=== PATIENT | male | born 1950 | race Caucasian/White ===

== ENCOUNTER 2017-11-12 12:36 | Inpatient (IN) ==
[2017-11-12] MEDS ORDERED: methylPREDNISolone SOD SUC 125 MG/2 ML VIAL IV STA (13:10)
[2017-11-12] MEDS: ALBUTEROL 2.5 MG/3 ML NEB RESP TX SCH ×3 (13:35→14:15)
[2017-11-12] MEDS ORDERED: methylPREDNISolone SOD SUC 125 MG/2 ML VIAL ONE (13:39)
[2017-11-12 14:08] LABS: Basophils # 0.1 10*3/uL (0.0-0.2); Basophils % 0.7 % (0.0-0.8); Eosinophils # 0.6 10*3/uL (0.0-0.87); Eosinophils % 3.6 % (0.00-10.9); Hematocrit 40.7 VOL% (42.0-52.0); Hemoglobin 13.3 GM/DL (14.0-18.0); Immature Granulocytes % 0.8 %; Immature Granulocytes Absolute 0.13 #; Lymphocytes # 1.9 10*3/uL (1.4-4.0); Lymphocytes % 12.4 % (21.2-54.2); Mean Corpuscular HGB Conc 32.7 GM/DL (32-36); Mean Corpuscular Hemoglobin 31 PG (27-34); Mean Corpuscular Volume 94.7 FL (87-102); Monocytes # 1.4 10*3/uL (0.11-0.8); Monocytes % 8.7 % (1.7-12.7); Neutrophils # 11.5 10*3/uL (1.4-7.4); Neutrophils % 73.8 % (38.7-73.9); Platelet Count 357 T/CUMM (130-400); Red Cell Distribution Width 14.3 % (9.3-17.3); White Blood Count 15.6 T/CUMM (4-12)
[2017-11-12 14:25] LABS: Alanine Aminotransferase 22 U/L (16-61); Albumin 2.7 G/DL (3.4-5.0); Alkaline Phosphatase 111 U/L (45-117); Aspartate Amino Transferase 17 U/L (0-37); Blood Urea Nitrogen 17 MG/DL (7-18); Calcium 9.3 MG/DL (8.5-10.1); Glucose 115 MG/DL (74-106); Potassium 3.8 MMOL/L (3.5-5.1); Sodium 136 MMOL/L (136-145); Total Protein 7.1 G/DL (6.4-8.3); Troponin I Only < 0.015 NG/ML (0.00-0.045)
[2017-11-12] MEDS ORDERED: ZALEPLON 5 MG CAPSULE PO PRN (15:52)
[2017-11-12] MEDS ORDERED: ONDANSETRON 4 MG/2 ML VIAL IV PRN (15:52)
[2017-11-12] MEDS ORDERED: LEVALBUTEROL 1.25 MG/3 ML NEB RESP TX PRN (15:52)
[2017-11-12] MEDS ORDERED: LEVALBUTEROL 0.63 MG/3 ML NEB RESP TX PRN (15:52)
[2017-11-12] MEDS: CHOLECALCIFEROL 1,000 UNIT TABLET PO SCH (20:28)
[2017-11-12] MEDS: PRAVASTATIN 40 MG TABLET PO SCH (20:28)
[2017-11-12] MEDS: ASCORBIC ACID 500 MG TABLET PO SCH (20:28)
[2017-11-12] MEDS: LATANOPROST 0.005% OPH SOLN 2.5 ML BOTTLE BOTH EYES SCH (20:30)
[2017-11-13 06:15] LABS: Basophils % 0.1 % (0.0-0.8); Hematocrit 40.4 VOL% (42.0-52.0); Hemoglobin 13.1 GM/DL (14.0-18.0); Immature Granulocytes % 1.2 %; Immature Granulocytes Absolute 0.14 #; Lymphocytes # 1.1 10*3/uL (1.4-4.0); Lymphocytes % 9.6 % (21.2-54.2); Mean Corpuscular HGB Conc 32.4 GM/DL (32-36); Mean Corpuscular Hemoglobin 31 PG (27-34); Mean Corpuscular Volume 94.2 FL (87-102); Mean Platelet Volume 9.3 FL (9.6-12.0); Monocytes # 0.3 10*3/uL (0.11-0.8); Monocytes % 2.6 % (1.7-12.7); Neutrophils # 10.3 10*3/uL (1.4-7.4); Neutrophils % 86.5 % (38.7-73.9); Platelet Count 388 T/CUMM (130-400); Red Blood Count 4.29 MC/CUMM (3.8-5.5); Red Cell Distribution Width 14.2 % (9.3-17.3); White Blood Count 11.9 T/CUMM (4-12)
[2017-11-13 08:07] LABS: Albumin 2.7 G/DL (3.4-5.0); Bilirubin,Total 0.7 MG/DL (0.2-1.0); Calcium 9.4 MG/DL (8.5-10.1); Osmolality,Calculated 277.5 MOS/KG (273-304); Potassium 4.6 MMOL/L (3.5-5.1); Total Protein 7.2 G/DL (6.4-8.3)
[2017-11-13] MEDS: CHOLECALCIFEROL 1,000 UNIT TABLET PO SCH ×2 (08:29→21:17)
[2017-11-13] MEDS: DILTIAZEM CD 180 MG CAPSULE PO SCH (08:30)
[2017-11-13] MEDS: ASCORBIC ACID 500 MG TABLET PO SCH ×2 (08:30→21:17)
[2017-11-13] MEDS: predniSONE 20 MG TABLET PO SCH (08:30)
[2017-11-13] MEDS: PANTOPRAZOLE 40 MG TABLET PO SCH (08:30)
[2017-11-13] MEDS: DIGOXIN 0.25 MG TABLET PO SCH (17:13)
[2017-11-13] MEDS: PRAVASTATIN 40 MG TABLET PO SCH (21:17)
[2017-11-13] MEDS: LATANOPROST 0.005% OPH SOLN 2.5 ML BOTTLE BOTH EYES SCH (21:21)
[2017-11-14] MEDS: DILTIAZEM CD 180 MG CAPSULE PO SCH (09:29)
[2017-11-14] MEDS: predniSONE 20 MG TABLET PO SCH (09:30)
[2017-11-14] MEDS: PANTOPRAZOLE 40 MG TABLET PO SCH (09:31)
[2017-11-14] MEDS: CHOLECALCIFEROL 1,000 UNIT TABLET PO SCH ×2 (09:32→20:48)
[2017-11-14] MEDS: ASCORBIC ACID 500 MG TABLET PO SCH ×2 (09:32→20:51)
[2017-11-14] MEDS: BUDESONIDE/FORMOTEROL 160-4.5 INHALER 6 GM INH SCH ×2 (09:59→20:49)
[2017-11-14] MEDS: LEVOFLOXACIN INJ 750 MG in PREMIX 1 EACH IV SCH (10:05)
[2017-11-14] MEDS: DIGOXIN 0.25 MG TABLET PO SCH (14:17)
[2017-11-14] MEDS: PRAVASTATIN 40 MG TABLET PO SCH (20:48)
[2017-11-14] MEDS: LATANOPROST 0.005% OPH SOLN 2.5 ML BOTTLE BOTH EYES SCH (20:49)
[2017-11-14 22:20] LABS: Apearance,Urine CLEAR (Clear); Bilirubin,Urine Negative (Negative); Blood, Urine Negative (Negative); Glucose,Urine (UA) Negative (Negative); Ketones,Urine Negative (Negative); Mucus,Urine Occasional /LPF (Occasional); Nitrite,Urine Negative (Negative); Protein,Urine Negative; Urine Color Straw (Yellow); Urine Specific Gravity 1.009 (1.001-1.035); Urine Urobilinogen < 2.0 EU/DL (0.2-1.0); WBC,Urine <1 /HPF (0-6)
[2017-11-15] MEDS ORDERED: DIAZEPAM 5 MG TABLET PO ONE (09:00)
[2017-11-15] MEDS: CHOLECALCIFEROL 1,000 UNIT TABLET PO SCH ×2 (11:40→20:42)
[2017-11-15] MEDS: predniSONE 20 MG TABLET PO SCH (11:40)
[2017-11-15] MEDS: DILTIAZEM CD 180 MG CAPSULE PO SCH (11:40)
[2017-11-15] MEDS: ASCORBIC ACID 500 MG TABLET PO SCH ×2 (11:41→20:42)
[2017-11-15] MEDS: PANTOPRAZOLE 40 MG TABLET PO SCH (11:41)
[2017-11-15] MEDS: LEVOFLOXACIN INJ 750 MG in PREMIX 1 EACH IV SCH (11:42)
[2017-11-15] MEDS: BUDESONIDE/FORMOTEROL 160-4.5 INHALER 6 GM INH SCH ×2 (11:43→20:44)
[2017-11-15] MEDS: DIGOXIN 0.25 MG TABLET PO SCH (13:14)
[2017-11-15] MEDS: PRAVASTATIN 40 MG TABLET PO SCH (20:42)
[2017-11-15] MEDS: LATANOPROST 0.005% OPH SOLN 2.5 ML BOTTLE BOTH EYES SCH (20:42)
[2017-11-16] MEDS: predniSONE 20 MG TABLET PO SCH (08:48)
[2017-11-16] MEDS: DILTIAZEM CD 180 MG CAPSULE PO SCH (08:48)
[2017-11-16] MEDS: CHOLECALCIFEROL 1,000 UNIT TABLET PO SCH (08:48)
[2017-11-16] MEDS: PANTOPRAZOLE 40 MG TABLET PO SCH (08:49)
[2017-11-16] MEDS: ASCORBIC ACID 500 MG TABLET PO SCH (08:49)
[2017-11-16] MEDS: LEVOFLOXACIN INJ 750 MG in PREMIX 1 EACH IV SCH (08:49)
[2017-11-16] MEDS: BUDESONIDE/FORMOTEROL 160-4.5 INHALER 6 GM INH SCH (08:51)
[2017-11-16 09:15] VITALS: BP 138/82
== END 2017-11-16 12:47 | disposition home health service (06) | DRG 181 ==
LOC: N.ED 12:36 → N.EDINP 15:04 → N.4E 18:37

== ENCOUNTER 2017-12-10 15:40 | Inpatient (IN) ==
[2017-12-10] MEDS ORDERED: FUROSEMIDE 100 MG/10 ML VIAL IV STA (15:58)
[2017-12-10] MEDS ORDERED: ONDANSETRON 4 MG/2 ML VIAL IV STA (15:58)
[2017-12-10] MEDS ORDERED: methylPREDNISolone SOD SUC 125 MG/2 ML VIAL IV STA (15:58)
[2017-12-10] MEDS ORDERED: ALBUTEROL 2.5 MG/3 ML NEB RESP TX SCH (16:00)
[2017-12-10 17:05] LABS: Basophils % 0.3 % (0.0-0.8); Eosinophils # 0.1 10*3/uL (0.0-0.87); Eosinophils % 0.7 % (0.00-10.9); Hematocrit 36.1 VOL% (42.0-52.0); Hemoglobin 11.6 GM/DL (14.0-18.0); Immature Granulocytes Absolute 0.43 #; Lymphocytes # 1.1 10*3/uL (1.4-4.0); Lymphocytes % 7.8 % (21.2-54.2); Mean Corpuscular HGB Conc 32.1 GM/DL (32-36); Mean Corpuscular Hemoglobin 31 PG (27-34); Mean Platelet Volume 8.7 FL (9.6-12.0); Monocytes # 0.7 10*3/uL (0.11-0.8); Monocytes % 5.2 % (1.7-12.7); Neutrophils # 11.9 10*3/uL (1.4-7.4); Platelet Count 407 T/CUMM (130-400); Red Cell Distribution Width 14.8 % (9.3-17.3); White Blood Count 14.3 T/CUMM (4-12)
[2017-12-10 17:16] LABS: PT Patient Result 10.9 SECS; Partial Thromboplastin Time 29.4 SECS (0-40)
[2017-12-10] MEDS ORDERED: methylPREDNISolone SOD SUC 125 MG/2 ML VIAL ONE (17:16)
[2017-12-10] MEDS ORDERED: FUROSEMIDE 40 MG/4 ML VIAL ONE (17:16)
[2017-12-10] MEDS ORDERED: ONDANSETRON 4 MG/2 ML VIAL ONE (17:16)
[2017-12-10 17:27] LABS: Alanine Aminotransferase 54 U/L (16-61); Albumin 2.3 G/DL (3.4-5.0); Alkaline Phosphatase 85 U/L (45-117); Aspartate Amino Transferase 20 U/L (0-37); Bilirubin,Total < 0.39 MG/DL (0.2-1.0); Blood Urea Nitrogen 25 MG/DL (7-18); Calcium 8.9 MG/DL (8.5-10.1); Glucose 108 MG/DL (74-106); Osmolality,Calculated 281.5 MOS/KG (273-304); Potassium 5.1 MMOL/L (3.5-5.1); Sodium 139 MMOL/L (136-145); Total Protein 6.2 G/DL (6.4-8.3)
[2017-12-10 17:38] LABS: Apearance,Urine CLEAR (Clear); Bilirubin,Urine Negative (Negative); Blood, Urine Negative (Negative); Glucose,Urine (UA) Negative (Negative); Ketones,Urine Negative (Negative); Mucus,Urine Occasional /LPF (Occasional); Nitrite,Urine Negative (Negative); Protein,Urine Negative; RBC,Urine 1 /HPF (0-4); Urine Color Yellow (Yellow); Urine Specific Gravity 1.019 (1.001-1.035); WBC,Urine <1 /HPF (0-6)
[2017-12-10] MEDS ORDERED: LEVOFLOXACIN INJ 750 MG in PREMIX 1 EACH IV STA (18:18)
[2017-12-10] MEDS ORDERED: LEVOFLOXACIN INJ 150 ML IV ONE (18:46)
[2017-12-10] MEDS ORDERED: ACETAMINOPHEN 325 MG TABLET PO PRN (18:51)
[2017-12-10] MEDS ORDERED: ONDANSETRON 4 MG/2 ML VIAL IV PRN (18:51)
[2017-12-10] MEDS: DABIGATRAN 150 MG CAPSULE PO SCH (21:45)
[2017-12-10] MEDS: ASCORBIC ACID 500 MG TABLET PO SCH (21:45)
[2017-12-10] MEDS: CHOLECALCIFEROL 1,000 UNIT TABLET PO SCH (21:46)
[2017-12-10] MEDS: PRAVASTATIN 40 MG TABLET PO SCH (21:46)
[2017-12-10] MEDS: BUDESONIDE/FORMOTEROL 160-4.5 INHALER 6 GM INH SCH (21:48)
[2017-12-10] MEDS: LATANOPROST 0.005% OPH SOLN 2.5 ML BOTTLE BOTH EYES SCH (21:48)
[2017-12-11] MEDS: LEVALBUTEROL 1.25 MG/3 ML NEB RESP TX SCH ×4 (01:27→19:31)
[2017-12-11] MEDS ORDERED: methylPREDNISolone SOD SUC 40 MG/1 ML VIAL IV SCH (03:00)
[2017-12-11 06:35] LABS: Basophils % 0.1 % (0.0-0.8); Hematocrit 34.7 VOL% (42.0-52.0); Hemoglobin 11.3 GM/DL (14.0-18.0); Immature Granulocytes % 2.3 %; Immature Granulocytes Absolute 0.28 #; Lymphocytes # 0.8 10*3/uL (1.4-4.0); Lymphocytes % 6.1 % (21.2-54.2); Mean Corpuscular HGB Conc 32.6 GM/DL (32-36); Mean Corpuscular Hemoglobin 31 PG (27-34); Mean Corpuscular Volume 93.5 FL (87-102); Mean Platelet Volume 8.7 FL (9.6-12.0); Monocytes # 0.1 10*3/uL (0.11-0.8); Monocytes % 1.1 % (1.7-12.7); Neutrophils # 11.1 10*3/uL (1.4-7.4); Neutrophils % 90.4 % (38.7-73.9); Platelet Count 401 T/CUMM (130-400); Red Blood Count 3.71 MC/CUMM (3.8-5.5); Red Cell Distribution Width 14.6 % (9.3-17.3); White Blood Count 12.3 T/CUMM (4-12)
[2017-12-11 07:03] LABS: Alanine Aminotransferase 56 U/L (16-61); Albumin 2.5 G/DL (3.4-5.0); Alkaline Phosphatase 86 U/L (45-117); Aspartate Amino Transferase 17 U/L (0-37); Bilirubin,Total < 0.39 MG/DL (0.2-1.0); Blood Urea Nitrogen 22 MG/DL (7-18); Calcium 8.9 MG/DL (8.5-10.1); Glucose 134 MG/DL (74-106); Osmolality,Calculated 277.8 MOS/KG (273-304); Potassium 4.8 MMOL/L (3.5-5.1); Sodium 137 MMOL/L (136-145); Total Protein 6.3 G/DL (6.4-8.3)
[2017-12-11] MEDS: DILTIAZEM CD 240 MG CAPSULE PO SCH ×3 (09:07→21:13)
[2017-12-11] MEDS: ASCORBIC ACID 500 MG TABLET PO SCH ×2 (09:07→20:33)
[2017-12-11] MEDS: DABIGATRAN 150 MG CAPSULE PO SCH ×2 (09:07→20:34)
[2017-12-11] MEDS: PANTOPRAZOLE 40 MG TABLET PO SCH (09:08)
[2017-12-11] MEDS: BUDESONIDE/FORMOTEROL 160-4.5 INHALER 6 GM INH SCH ×2 (09:08→20:35)
[2017-12-11] MEDS: CHOLECALCIFEROL 1,000 UNIT TABLET PO SCH ×2 (09:08→20:34)
[2017-12-11] MEDS: DIGOXIN 0.25 MG TABLET PO SCH (09:08)
[2017-12-11] MEDS: ASPIRIN CHEW 81 MG TABLET PO SCH (09:08)
[2017-12-11] MEDS: methylPREDNISolone SOD SUC 40 MG/1 ML VIAL IV SCH ×2 (09:09→20:35)
[2017-12-11] MEDS: PRAVASTATIN 40 MG TABLET PO SCH (20:33)
[2017-12-11] MEDS: LATANOPROST 0.005% OPH SOLN 2.5 ML BOTTLE BOTH EYES SCH (20:33)
[2017-12-11] MEDS: LEVOFLOXACIN INJ 750 MG in PREMIX 1 EACH IV SCH (20:40)
[2017-12-12] MEDS: LEVALBUTEROL 1.25 MG/3 ML NEB RESP TX SCH ×4 (00:22→19:15)
[2017-12-12] MEDS: ASPIRIN CHEW 81 MG TABLET PO SCH (09:06)
[2017-12-12] MEDS: DILTIAZEM CD 240 MG CAPSULE PO SCH ×2 (09:06→20:47)
[2017-12-12] MEDS: PANTOPRAZOLE 40 MG TABLET PO SCH (09:07)
[2017-12-12] MEDS: CHOLECALCIFEROL 1,000 UNIT TABLET PO SCH ×2 (09:07→20:48)
[2017-12-12] MEDS: BUDESONIDE/FORMOTEROL 160-4.5 INHALER 6 GM INH SCH ×2 (09:07→20:53)
[2017-12-12] MEDS: DIGOXIN 0.25 MG TABLET PO SCH (09:07)
[2017-12-12] MEDS: DABIGATRAN 150 MG CAPSULE PO SCH ×2 (09:07→20:47)
[2017-12-12] MEDS: ASCORBIC ACID 500 MG TABLET PO SCH ×2 (09:08→20:47)
[2017-12-12] MEDS: methylPREDNISolone SOD SUC 40 MG/1 ML VIAL IV SCH ×2 (09:08→20:48)
[2017-12-12] MEDS: MAGNESIUM HYDROXIDE SUSP 30 ML UDCUP PO PRN ×2 (14:28→20:48)
[2017-12-12] MEDS: LEVOFLOXACIN INJ 750 MG in PREMIX 1 EACH IV SCH (20:46)
[2017-12-12] MEDS: PRAVASTATIN 40 MG TABLET PO SCH (20:48)
[2017-12-12] MEDS: LATANOPROST 0.005% OPH SOLN 2.5 ML BOTTLE BOTH EYES SCH (20:53)
[2017-12-13] MEDS: LEVALBUTEROL 1.25 MG/3 ML NEB RESP TX SCH ×4 (01:28→19:41)
[2017-12-13 06:50] LABS: Basophils % 0.1 % (0.0-0.8); Hematocrit 38.1 VOL% (42.0-52.0); Hemoglobin 11.8 GM/DL (14.0-18.0); Immature Granulocytes % 1.7 %; Immature Granulocytes Absolute 0.28 #; Lymphocytes # 0.8 10*3/uL (1.4-4.0); Lymphocytes % 4.9 % (21.2-54.2); Mean Corpuscular Hemoglobin 30 PG (27-34); Mean Platelet Volume 8.6 FL (9.6-12.0); Monocytes # 0.6 10*3/uL (0.11-0.8); Monocytes % 3.8 % (1.7-12.7); Neutrophils # 14.6 10*3/uL (1.4-7.4); Neutrophils % 89.5 % (38.7-73.9); Platelet Count 444 T/CUMM (130-400); Red Blood Count 3.97 MC/CUMM (3.8-5.5); Red Cell Distribution Width 14.6 % (9.3-17.3); White Blood Count 16.3 T/CUMM (4-12)
[2017-12-13 07:17] LABS: Calcium 8.8 MG/DL (8.5-10.1); Osmolality,Calculated 281.5 MOS/KG (273-304); Potassium 4.7 MMOL/L (3.5-5.1)
[2017-12-13 07:40] LABS: Lymphocytes 6 % (20-55); Platelet Estimate Increased; Segmented Neutrophils 92 % (50-85); Total Cells Counted 100
[2017-12-13 07:41] LABS: Anisocytosis Slight; Hypochromasia 1+
[2017-12-13 07:43] LABS: Ovalocytes Slight
[2017-12-13] MEDS: DABIGATRAN 150 MG CAPSULE PO SCH ×2 (09:44→20:52)
[2017-12-13] MEDS: DILTIAZEM CD 240 MG CAPSULE PO SCH ×2 (09:44→20:52)
[2017-12-13] MEDS: DIGOXIN 0.25 MG TABLET PO SCH (09:44)
[2017-12-13] MEDS: CHOLECALCIFEROL 1,000 UNIT TABLET PO SCH ×2 (09:44→20:52)
[2017-12-13] MEDS: ASCORBIC ACID 500 MG TABLET PO SCH ×2 (09:44→20:51)
[2017-12-13] MEDS: methylPREDNISolone SOD SUC 40 MG/1 ML VIAL IV SCH ×2 (09:45→20:52)
[2017-12-13] MEDS: PANTOPRAZOLE 40 MG TABLET PO SCH (09:45)
[2017-12-13] MEDS: ASPIRIN CHEW 81 MG TABLET PO SCH (09:46)
[2017-12-13] MEDS: BUDESONIDE/FORMOTEROL 160-4.5 INHALER 6 GM INH SCH ×2 (09:46→21:00)
[2017-12-13] MEDS: PRAVASTATIN 40 MG TABLET PO SCH (20:51)
[2017-12-13] MEDS: LEVOFLOXACIN INJ 750 MG in PREMIX 1 EACH IV SCH (20:55)
[2017-12-13] MEDS: LATANOPROST 0.005% OPH SOLN 2.5 ML BOTTLE BOTH EYES SCH (21:00)
[2017-12-14] MEDS: LEVALBUTEROL 1.25 MG/3 ML NEB RESP TX SCH ×4 (00:13→19:40)
[2017-12-14 06:39] LABS: Basophils % 0.1 % (0.0-0.8); Immature Granulocytes % 2.5 %; Immature Granulocytes Absolute 0.37 #; Lymphocytes # 0.6 10*3/uL (1.4-4.0); Lymphocytes % 4.3 % (21.2-54.2); Mean Corpuscular HGB Conc 31.6 GM/DL (32-36); Mean Corpuscular Hemoglobin 30 PG (27-34); Mean Corpuscular Volume 94.3 FL (87-102); Mean Platelet Volume 8.6 FL (9.6-12.0); Monocytes # 0.7 10*3/uL (0.11-0.8); Monocytes % 4.5 % (1.7-12.7); Neutrophils # 12.9 10*3/uL (1.4-7.4); Neutrophils % 88.6 % (38.7-73.9); Platelet Count 433 T/CUMM (130-400); Red Blood Count 4.03 MC/CUMM (3.8-5.5); Red Cell Distribution Width 14.6 % (9.3-17.3); White Blood Count 14.6 T/CUMM (4-12)
[2017-12-14 07:03] LABS: Hypochromasia 1+; Lymphocytes 9 % (20-55); Microcytosis Slight; Segmented Neutrophils 87 % (50-85); Total Cells Counted 100
[2017-12-14 07:08] LABS: Calcium 8.6 MG/DL (8.5-10.1); Osmolality,Calculated 277.8 MOS/KG (273-304)
[2017-12-14] MEDS: ASCORBIC ACID 500 MG TABLET PO SCH ×2 (08:02→20:51)
[2017-12-14] MEDS: DILTIAZEM CD 240 MG CAPSULE PO SCH ×2 (08:02→20:50)
[2017-12-14] MEDS: PANTOPRAZOLE 40 MG TABLET PO SCH (08:02)
[2017-12-14] MEDS: CHOLECALCIFEROL 1,000 UNIT TABLET PO SCH ×2 (08:02→20:51)
[2017-12-14] MEDS: DIGOXIN 0.25 MG TABLET PO SCH (08:02)
[2017-12-14] MEDS: ASPIRIN CHEW 81 MG TABLET PO SCH (08:02)
[2017-12-14] MEDS: methylPREDNISolone SOD SUC 40 MG/1 ML VIAL IV SCH ×2 (08:03→20:51)
[2017-12-14] MEDS: DABIGATRAN 150 MG CAPSULE PO SCH ×2 (08:03→20:50)
[2017-12-14] MEDS: BUDESONIDE/FORMOTEROL 160-4.5 INHALER 6 GM INH SCH ×2 (08:04→20:51)
[2017-12-14] MEDS: LEVOFLOXACIN INJ 750 MG in PREMIX 1 EACH IV SCH (20:50)
[2017-12-14] MEDS: LATANOPROST 0.005% OPH SOLN 2.5 ML BOTTLE BOTH EYES SCH (20:51)
[2017-12-14] MEDS: PRAVASTATIN 40 MG TABLET PO SCH (20:51)
[2017-12-14] MEDS ORDERED: ZALEPLON 5 MG CAPSULE PO PRN (23:09)
[2017-12-14] MEDS ORDERED: ZALEPLON 5 MG CAPSULE ONE (23:16)
[2017-12-15] MEDS: LEVALBUTEROL 1.25 MG/3 ML NEB RESP TX SCH ×2 (00:32→07:49)
[2017-12-15 06:36] LABS: Basophils % 0.2 % (0.0-0.8); Hemoglobin 11.6 GM/DL (14.0-18.0); Immature Granulocytes % 5.1 %; Immature Granulocytes Absolute 0.75 #; Lymphocytes # 0.4 10*3/uL (1.4-4.0); Lymphocytes % 2.6 % (21.2-54.2); Mean Corpuscular HGB Conc 32.2 GM/DL (32-36); Mean Corpuscular Hemoglobin 30 PG (27-34); Mean Corpuscular Volume 93.8 FL (87-102); Monocytes # 0.7 10*3/uL (0.11-0.8); Monocytes % 4.7 % (1.7-12.7); Neutrophils % 87.4 % (38.7-73.9); Platelet Count 442 T/CUMM (130-400); Red Blood Count 3.84 MC/CUMM (3.8-5.5); Red Cell Distribution Width 14.6 % (9.3-17.3); White Blood Count 14.8 T/CUMM (4-12)
[2017-12-15 06:56] LABS: Calcium 8.6 MG/DL (8.5-10.1); Osmolality,Calculated 280.1 MOS/KG (273-304); Potassium 4.9 MMOL/L (3.5-5.1)
[2017-12-15 06:57] LABS: Lymphocytes 3 % (20-55); Nucleated Red Blood Cells 1 (0-5); Segmented Neutrophils 89 % (50-85); Total Cells Counted 100
[2017-12-15 06:58] LABS: Hypochromasia 1+; Microcytosis Slight
[2017-12-15] MEDS: ASCORBIC ACID 500 MG TABLET PO SCH (08:26)
[2017-12-15] MEDS: DIGOXIN 0.25 MG TABLET PO SCH (08:26)
[2017-12-15] MEDS: CHOLECALCIFEROL 1,000 UNIT TABLET PO SCH (08:26)
[2017-12-15] MEDS: methylPREDNISolone SOD SUC 40 MG/1 ML VIAL IV SCH (08:27)
[2017-12-15] MEDS: DILTIAZEM CD 240 MG CAPSULE PO SCH (08:27)
[2017-12-15] MEDS: BUDESONIDE/FORMOTEROL 160-4.5 INHALER 6 GM INH SCH (08:27)
[2017-12-15] MEDS: DABIGATRAN 150 MG CAPSULE PO SCH (08:27)
[2017-12-15] MEDS: ASPIRIN CHEW 81 MG TABLET PO SCH (08:27)
[2017-12-15] MEDS: PANTOPRAZOLE 40 MG TABLET PO SCH (08:27)
[2017-12-15] MEDS ORDERED: FUROSEMIDE 40 MG/4 ML VIAL IV ONE (09:42)
[2017-12-15 11:26] VITALS: BP 134/80
== END 2017-12-15 11:17 | disposition home or self-care (01) | DRG 190 ==
LOC: N.ED 15:40 → SUATTDRO 18:14 → N.EDINP 18:14 → N.5E 19:40
PROVIDERS: ADMIT Internal Medicine Infectious Disease; ATTEND Hospitalist